=== PATIENT | male | born 1955 | race Caucasian/White ===

== ENCOUNTER 2016-11-05 21:00 | Inpatient (IN) | payer MEDICAID ==
[~2016-11-05] VITALS: Ht 190.5 cm; Wt 69.8 kg
--- NOTE | ~2016-11-05 | CR243 ---
[facility] A Service [facility] RADIOLOGY TEXT RESULTS PATIENT: ANNA GOLDBERG LOCATION: [facility] : 55 UNIT #: [id number] AGE: [address]: SHERIF GARAY V SEX: M ORDER DR: [id number] [place], [place] [address] [id number] MR#: [id number] Acc #: [id number] NAME: ANNA GOLDBERG. : 1955 SEX: M STUDY DATE/TIME: 11/06/2016 19:40 UNIT: [facility] ROOM: [facility] STUDY DESCRIPTION: CR Thoracic Spine 3 Views Attending Physician: Sherif Garay M.D. Ordering Physician: Nano Jones M.D. MEDICAL IMAGING REPORT This report is preliminary unless electronic signature is present EXAM 3 views of the thoracic spine 11/06/2016 HISTORY 60-year-old male with right side back and rib pain after falling 1 week ago. COMPARISON None. FINDINGS The lateral image is degraded by motion. No definite acute thoracic vertebral body fracture or subluxation is seen. There is marginal osteophyte formation within the hlp-yn-gogwg thoracic spine. Disc space height appears preserved. IMPRESSION Limited exam. The lateral image is degraded by motion. No acute thoracic spine findings. Dictated by... Alanis Riggs M.D. THIS IS AN ELECTRONICALLY VERIFIED REPORT Alanis Riggs M.D. at 11/09/2016 8:38 AM LLH/talon TD: 11/07/2016 15:25 JOB #: [id number] MEDICAL IMAGING REPORT [facility] A Service [facility] RADIOLOGY TEXT RESULTS PATIENT: ANNA GOLDBERG LOCATION: [facility] : 55 UNIT #: [id number] AGE: [address]: SHERIF GARAY V SEX: M ORDER DR: Page 1 of 1 COPY
--- NOTE | ~2016-11-05 | CR72 ---
[facility] A Service of [facility] RADIOLOGY TEXT RESULTS PATIENT: ANNA GOLDBERG LOCATION: [facility] : 55 UNIT #: [id number] AGE: [address]: Enoc Parker MD SEX: M ORDER DR: [id number] [address] [id number] MR#: [id number] Acc #: [id number] NAME: ANNA GOLDBERG. : 1955 SEX: M STUDY DATE/TIME: 11/05/2016 21:46 UNIT: [facility] ROOM: STUDY DESCRIPTION: CR Chest Single View Portable Ordering Physician: [facility] MEDICAL IMAGING REPORT This report is preliminary unless electronic signature is present EXAM Frontal chest 11/05/2016 INDICATIONS Cough. Shortness of air. Fever. Chest pain. Shortness of breath. Bilateral rib pain. Symptoms for a week. Fell. TECHNIQUE Frontal chest. COMPARISON STUDIES 06/02/2013. FINDINGS Cardiac silhouette is within normal limits. The lungs are emphysematous. Interval development of bibasilar interstitial opacities and more confluent alveolar opacities in the left lung base. Imaging findings are suspicious for bibasilar pneumonia but could potentially also represent interval progression of underlying chronic lung disease and progressive fibrosis. Infection is favored and imaging follow up to resolution after appropriate therapy is recommended. No pneumothorax. No significant effusion. IMPRESSION 1. Chronic lung changes with imaging findings suspicious for bibasilar pneumonia, left greater than right. Follow up to clearing is recommended. No pneumothorax or significant effusion. STAT * RESULT Dictated by... [facility] A Service of [facility] RADIOLOGY TEXT RESULTS PATIENT: ANNA GOLDBERG LOCATION: [facility] : 55 UNIT #: [id number] AGE: [address]: Enoc Parker MD SEX: M ORDER DR: Alejandro Zavaleta M.D. THIS IS AN ELECTRONICALLY VERIFIED REPORT Alejandro Zavaleta M.D. at 11/05/2016 11:35 PM TEAN/talon TD: 11/05/2016 22:25 JOB #: [id number] MEDICAL IMAGING REPORT Page 1 of 1 COPY
--- NOTE | ~2016-11-05 | HP ---
Unit #: [id number] #: [id number] Patient: ANNA GOLDBERG [id number] [address] [place], [place] [address] [id number] MR#: [id number] NAME: ANNA GOLDBERG. ROOM: 573 Age: 60 Sex: M Admission Date: 11/05/2016 : 1955 Attending Physician: Nano Jones M.D. Primary Care Physician: No Primary Care Physician HISTORY AND PHYSICAL CHIEF COMPLAINT Pneumonia in patient with polysubstance abuse. HISTORY This 60-year-old male with polysubstance abuse including heroin and alcohol with hepatitis C and likely COPD is admitted for pneumonia. The patient states that he is homeless. Uses a wheelchair. He fell out of the wheelchair, which then fell on him, a week ago. He has been experiencing back pain and chest discomfort. Does have a deep cough productive of green sputum, which has worsened, and is not associated with shortness of breath, fevers, sweats, and chills. He presented to this emergency department this evening with a temperature of 102.1, somewhat tachycardic with an O2 saturation of 93%. He has a lactic acid level, which is elevated. Blood cultures were performed and he was given 4.5 g of IV Zosyn and given a gram of Tylenol. I have asked that 2 liters of saline be administered along with a DuoNeb. Patient uses heroin on a daily basis with clean needles, but has not used for the past two days or so. Drinks on daily basis six 32-ounce beers. Does have a history of alcohol withdrawal. Last drink was just prior to coming into the emergency department. Chest x-ray shows chronic lung changes with left greater than right bibasilar pneumonia. PAST MEDICAL HISTORY 1. Hepatitis C. 2. Alcohol abuse. 3. Polysubstance abuse. 4. Admission to [facility] last year for an infected right shoulder. Will obtain records. 5. Right hip ORIF. 6. Appendectomy. ALLERGIES None. HOME MEDICATIONS None. FAMILY HISTORY Diabetes mellitus. SOCIAL HISTORY The patient is homeless. He smokes 1 1/2 packs per day of tobacco. He drinks six 32-ounce beers on a daily basis. He injects heroin generally Unit #: [id number] #: [id number] Patient: ANNA GOLDBERG every day with clean needles. REVIEW OF SYSTEMS Notable for productive cough; shortness of breath; wheezing; fevers; sweats; chills; back, leg, and chest discomfort following a fall; hepatitis C; polysubstance abuse; and abovementioned surgeries. All other systems were reviewed and otherwise negative. PHYSICAL EXAMINATION GENERAL APPEARANCE: Thin, 60-year-old male who looks to be somewhat ill. VITAL SIGNS: Temperature 102.1, pulse 116, respirations 17, blood pressure 121/75, and O2 saturation 93% on room air. HEENT: Eyes: PERRLA. Extraocular muscles are intact. Pharynx is benign. NECK: Supple without adenopathy or thyromegaly. CHEST: Reveals rhonchi bilaterally. CARDIAC: Slightly tachy S1 and S2 without murmur. ABDOMEN: Bowels sounds are present. No hepatosplenomegaly, tenderness, or masses. EXTREMITIES: Without edema. NEUROLOGIC: Patient is awake, alert, and oriented. Cranial nerves are intact. Equal strength throughout. DIAGNOSTIC STUDIES ADMISSION LABS: Hematocrit 37.1, white blood count is 10.8, and normal platelet count. SMA-7: Glucose 117, sodium 129, potassium 3, chloride 97, and calcium is 7.8. Lactic acid is 3. Urine tox screen positive for cocaine, opiates, and TCA. IMAGING: Chest x-ray: Chronic lung changes, left greater than right, bibasilar pneumonia. ASSESSMENT 1. Pneumonia in this patient with history of polysubstance abuse. This is associated with mild hypoxic respiratory failure and sepsis. 2. Hyponatremia and hypokalemia secondary to alcohol abuse. 3. Injectable heroin and cocaine abuse. 4. Alcohol abuse. 5. Hepatitis C. 6. Recent fall with complaints of back, chest, and right leg pain. 7. Homeless. PLANS 1. Aggressive IV fluids. 2. Bronchodilators. 3. Zosyn, doxycycline, and one dose of vancomycin pending sputum and blood cultures. 4. Medications for alcohol and opiate withdrawal. 5. DVT and gastritis prophylaxes. 6. Request old records from [facility] in regards to right shoulder infection last year. 7. I did offer patient social work help. 8. Benzos and vitamins. 9. Will check LFTs in the morning. Dictated by Unit #: [id number] #: [id number] Patient: ANNA GOLDBERG M.D. AML/pc TD: 11/06/2016 05:36 JOB #: [id number] HISTORY AND PHYSICAL Page 1 of 1 X Nano Jones MD X HISTORY AND PHYSICAL
--- NOTE | ~2016-11-05 | DS ---
Unit #: [id number] #: [id number] Patient: ANNA RODRIGUEZ [id number] [address] [address] [id number] I MR#: [id number] NAME: ANNA RODRIGUEZ. ROOM: 573 Age: 60 Sex: M Admission Date: 11/05/2016 : 1955 Discharge Date: 11/08/2016 Attending Physician: Saul Martinez M.D. Primary Care Physician: No Primary Care Physician DISCHARGE SUMMARY PRIMARY CARE PHYSICIAN None. PRINCIPAL DIAGNOSES 1. Sepsis, secondary with bibasilar pneumonia, question community acquired versus aspiration. 2. Acute hypoxic respiratory failure, now resolved. 3. Right-sided pleuritic chest pain. 4. Diarrhea, likely secondary to a combination of opiate and alcohol withdrawal. 5. IV drug abuse, namely heroin. 6. Chronic alcohol abuse, maintained on low-dose Librium during hospitalization. 7. Known hepatitis C. 8. Chronic obstructive pulmonary disease. 9. Moderate protein malnutrition. 10. Underweight. SWEATBAND FLANGER None. PROCEDURES 1. Chest x-ray on November 05, 2016 with emphysematous changes of the lungs. Bibasilar interstitial opacities noted. Changes of fibrosis also noted. 2. X-ray of thoracic spine on November 06, 2016 with no acute findings. CLINICAL HISTORY AND HOSPITAL COURSE Mr. Rodriguez is a 60-year-old male who presents to the emergency department with increasing cough and shortness of breath. In the emergency department, he was found to be febrile. Chest x-ray revealed pneumonia. Patient was subsequently admitted. In regard to patient's pneumonia, he was placed on empiric IV antibiotics. He did have some mild associated respiratory failure initially but this resolved rather quickly. White blood cell count remained normal throughout hospitalization and procalcitonin was only 0.11. He has been transitioned for oral antibiotics and will complete a course as an outpatient. Patient does have a history of polysubstance abuse including IV heroin and alcohol use. He was placed on opiate withdrawal protocol but appears very stable. He was also placed on CIWA protocol with low-dose Librium and again appears stable. He does not wish to receive any outpatient Unit #: [id number] #: [id number] Patient: ANNA RODRIGUEZ treatment. Patient is walking down stairs. His ambulating O2 saturations are normal, and he will be discharged back to the group home and/or living with his brother. DISCHARGE CONDITION Stable. DISCHARGE STATUS Discharge to home versus group home. DISCHARGE MEDICATIONS 1. Omnicef 300 mg p.o. b.i.d. for five days. 2. Dulera 200/5 mcg two puffs b.i.d. with one refill. 3. Albuterol inhaler one to two puffs every four hours p.r.n. for shortness of breath, number given 1. 4. Ibuprofen 200 mg three tablets p.o. q.8 hours p.r.n. for pain. DISCHARGE INSTRUCTIONS 1. He is to follow a regular diet. 2. He can increase his activity as tolerated. 3. He should refrain from any further tobacco, alcohol, or illicit drug use though as noted above, the patient states he is not interested in getting any treatment for any of the above. FOLLOWUP The patient can follow up with his primary care of choice in two weeks. Dictated by... Magali Tolbert M.D. JENIFFER/tara TD: 11/09/2016 10:26 JOB #: [id number] DISCHARGE SUMMARY Page 1 of 1 X Magali Tolbert MD X DISCHARGE SUMMARY
[2016-11-05 21:46] LABS: BASOPHIL% 0.3 % (0-2.5); EOSINOPHIL% 0.1 % (0.0-7.0); HEMATOCRIT 37.1 % (38.0-50.0); HEMOGLOBIN 12.7 gm/dL (13.0-16.0); LYMPHOCYTE# 0.6 X10e3 (1.0-3.5); LYMPHOCYTE% 5.9 % (17.0-45.0); MEAN CELL VOLUME 90.5 FL (83-96); MEAN CORPUSCULAR HEMOGLOBIN 30.9 PG (28-34); MEAN CORPUSCULAR HGB CONC 34.1 g/dL (30-36); MEAN PLATELET VOLUME 7.4 FL (6.5-11.5); MONOCYTE# 0.7 X10e3 (0-1.0); MONOCYTE% 6.3 % (3.0-12.0); NEUTROPHIL# 9.5 X10e3 (1.5-7.1); NEUTROPHIL% 87.4 % (40-75); PLATELET COUNT 200 X10e3 (140-420); RED CELL DISTRIBUTION WIDTH 14.1 % (11.0-15.5); WHITE BLOOD COUNT 10.8 X10e3 (4.0-10.5)
[2016-11-05 21:52] LABS: DIFF IND NO
[2016-11-05 22:11] LABS: BUN/CREATININE RATIO 7.14; CALCIUM SERUM 7.8 mg/dL (8.4-10.2); CREATININE SERUM 0.7 mg/dL (0.6-1.4); GLOM FILT RATE Estimated 102.6 mL/min (>60)
[2016-11-06] MEDS ORDERED: NO MEDICATIONS (03:46)
[2016-11-06 09:27] LABS: BASOPHIL% 0.5 % (0-2.5); EOSINOPHIL# 0.1 X10e3 (0-0.7); HEMATOCRIT 36.9 % (38.0-50.0); HEMOGLOBIN 12.1 gm/dL (13.0-16.0); LYMPHOCYTE# 2.4 X10e3 (1.0-3.5); LYMPHOCYTE% 32.6 % (17.0-45.0); MEAN CELL VOLUME 91.8 FL (83-96); MEAN CORPUSCULAR HEMOGLOBIN 30.1 PG (28-34); MEAN CORPUSCULAR HGB CONC 32.8 g/dL (30-36); MEAN PLATELET VOLUME 7.5 FL (6.5-11.5); MONOCYTE# 0.6 X10e3 (0-1.0); MONOCYTE% 7.8 % (3.0-12.0); NEUTROPHIL# 4.3 X10e3 (1.5-7.1); NEUTROPHIL% 58.1 % (40-75); PLATELET COUNT 168 X10e3 (140-420); RED BLOOD COUNT 4.02 X10e (3.90-5.60); RED CELL DISTRIBUTION WIDTH 14.4 % (11.0-15.5); WHITE BLOOD COUNT 7.4 X10e3 (4.0-10.5)
[2016-11-06 09:49] LABS: DIFF IND NO
[2016-11-06 09:53] LABS: INR 1.2; PARTIAL THROMBOPLASTIN TIME 30.6 SECONDS (23.5-31.3); PROTHROMBIN TIME (PATIENT) 12.7 SECONDS (10.0-11.7)
[2016-11-06 10:04] LABS: ALBUMIN SERUM 2.1 g/dL (3.5-5.0); BILIRUBIN,TOTAL 0.7 mg/dL (0.2-2.0); CALCIUM SERUM 7.5 mg/dL (8.4-10.2); CREATININE SERUM 0.7 mg/dL (0.6-1.4); GLOM FILT RATE Estimated 102.6 mL/min (>60); MAGNESIUM 1.6 mg/dL (1.6-3.0); POTASSIUM 3.4 mmol/L (3.5-5.1); PROTEIN TOTAL SERUM 5.8 g/dL (6.0-8.3)
[2016-11-07 09:42] LABS: BUN/CREATININE RATIO 11.66; CALCIUM SERUM 7.5 mg/dL (8.4-10.2); CREATININE SERUM 0.6 mg/dL (0.6-1.4); GLOM FILT RATE Estimated 109.3 mL/min (>60); POTASSIUM 4.1 mmol/L (3.5-5.1)
[2016-11-08] MEDS ORDERED: DULERA 200 MCG/13 GM INH (08:26)
[2016-11-08] MEDS ORDERED: OMNICEF300 MG PO (08:27)
[2016-11-08] MEDS ORDERED: ALBUTEROL17 GM INH (08:27)
[2016-11-08] MEDS ORDERED: ADVIL200 M3 PO (08:28)
== END 2016-11-08 10:58 | disposition home or self-care (01) | DRG 871 ==
LOC: CED 21:00 → CEDOF 23:50 → CED 23:51 → CEDOF 23:51 → C5C 11-06 00:43 → CEDOF 11-06 00:43 → C5C 11-06 09:25
PROVIDERS: Emergency Medicine; Internal Medicine
DX: A41.9 Sepsis, unspecified organism (principal); J69.0 Pneumonitis due to inhalation of food and vomit; J96.01 Acute respiratory failure with hypoxia; E44.0 Moderate protein-calorie malnutrition; F10.230 Alcohol dependence with withdrawal, uncomplicated; F11.23 Opioid dependence with withdrawal; Z68.1 Body mass index [BMI] 19.9 or less, adult; E87.1 Hypo-osmolality and hyponatremia; F14.10 Cocaine abuse, uncomplicated; R19.7 Diarrhea, unspecified; B19.20 Unspecified viral hepatitis C without hepatic coma; J44.9 Chronic obstructive pulmonary disease, unspecified; E87.6 Hypokalemia; Z59.0 Homelessness; Z83.3 Family history of diabetes mellitus
CPT/HCPCS: 36415; 71010; 72072; 80048; 80053; 82308; 82947; 83605; 83735; 84132; 85025; 85610; 85730; 87040; 87045; 87070; 87205; 87427; 87493; 87806; 87899; 94640; 94644; 94664; 94760; 96361; 96365; 99285; J1650; J2405; J2543; J3370; J3475